=== PATIENT | female | born 1970 | race Caucasian/White ===

== ENCOUNTER 2019-10-11 06:46 | Emergency (ER) | payer SELFPAY ==
--- OUTSIDE RECORDS SUMMARY | 2019-10-11 06:49 | XMS REPORT | Continuity of Care Document ---
:1970 Author Organization [facility] t Address [address] [place] [address] Care Team Providers Name Role Phone Sakina Chin DO Attending Clinician Problems This patient has no known problems. Allergies, Adverse Reactions, Alerts This patient has no known allergies or adverse reactions. Medications This patient has no known medications. Procedures This patient has no known procedures. Encounters Start End Encounter Admission Attending Care Care Encounter Source Date/Time Date/Time Type Type Clinicians Facility Department ID 2019-09-24 2019-09-24 Emergency KP Chin [id number] 14:59:01 18:53:00 Lynn Salmon [id number] [place] [id number] [place] [id number] [id number] Results This patient has no known results.
--- OUTSIDE RECORDS SUMMARY | 2019-10-11 06:49 | XMS REPORT | Summary of Care ---
:1970 Author Organization [facility] Address [address] [place] [id number] Care Team Providers Name Role Phone Pcp, Does Not Have A Primary Care Provider Reason for Visit Reason Comments Neck Pain Auth/Cert Status Reason Specialty Diagnoses / Referred By Referred To Procedures Contact Contact Emergency Medicine [facility] Em ergency Dept [address] [place] [address] Fax: Encounter Details Date Type Department Care Team Description 09/24/2019 Emergency [facility]-Emergency Lynn Black, [facility] DO (Primary Dx) [id number] [place] [address] [phone] Allergies No Known Allergiesdocumented as of this encounter (statuses as of 09/24/2019) Medications Medication Sig Dispensed Refills Start Date End Date Status benzonatate (TESSALON Take 1 capsule by 20 capsule 0 6 Active PERLES) 100 mg mouth 3 (three) capsule times daily. albuterol (PROVENTIL) Inhale 3 mL every 1 Box 0 08/22/2015 Active 2.5 mg /3 mL (0.083 4 (four) hours as %) nebulizer solution needed for Wheezing or Shortness of Breath. ibuprofen (MOTRIN) Take 1 tablet by 30 tablet 0 08/22/2015 Active 600 mg tablet mouth every 6 (six) hours as needed for Pain (scale 4-6). diazePAM (VALIUM) 5 Take 1 tablet by 9 tablet 0 09/24/2019 Active mg tabletIndications: mouth 3 (three) Neck stiffness times daily as needed for Muscle Spasms. documented as of this encounter (statuses as of 09/24/2019) Active Problems No known active problemsdocumented as of this encounter (statuses as of 09/24/2019) Social History Tobacco Use Types Packs/Day Years Used Date Never Assessed Sex Assigned at Date Recorded Not on file Job Start Date Occupation Industry Not on file Not on file Not on file Travel History Travel Start Travel End No recent travel history available. COVID-19 Exposure Response Date Recorded In the last month, have you been in contact with No / Unsure 09/24/2019 2:25 PM CDT someone who was confirmed or suspected to have Coronavirus / COVID-19? documented as of this encounter Last Filed Vital Signs Vital Sign Reading Time Taken Comments Blood Pressure 106/79 09/24/2019 5:00 PM CDT Pulse 76 09/24/2019 5:00 PM CDT Temperature 36.7 C (98 F) 09/24/2019 2:56 PM CDT Respiratory Rate 18 09/24/2019 5:00 PM CDT Oxygen Saturation 99% 09/24/2019 5:00 PM CDT Inhaled Oxygen Concentration - - Weight 67.1 kg (148 lb) 09/24/2019 2:56 PM CDT Height 162.6 cm (5' 4") 09/24/2019 2:56 PM CDT Body Mass Index 25.4 09/24/2019 2:56 PM CDT documented in this encounter Discharge Instructions Lynn Estrella, - 09/24/2019DIAGNOSIS 1. Neck stiffness NO LIFE-THREATENING FINDINGS ON TODAY'S EXAM. PROCEDURES IN THE ER TODAY: None MEDICATIONS ADMINISTERED IN THE ER TODAY: Valium Toradol Robaxin YOUR PRESCRIPTIONS AND [id number] MEDICATION RECOMMENDATIONS: Valium by mouth every 8 hours as needed for neck pain/stiffness. Do not drive while taking this medication. You may use over the counter anti-inflammatories such as Advil or Motrin three times a day with foodas needed for pain. You may use warm compresses, icy hot/farheen montes and massage. SPECIAL CARE INSTRUCTIONS: None FOLLOW-UP RECOMMENDATIONS: RECOMMEND FOLLOW-UP WITH A PRIMARY CARE PROVIDER OR SPECIALIST IN 2-5 DAYS, ESPECIALLY IF NO IMPROVEMENT IN SYMPTOMS. TO FOLLOW-UP WITHIN THE [facility], TRY THESE OPTIONS (CLINIC APPOINTMENTS AVAILABLE ON [id number] BASIS): 1. SCHEDULE AN APPOINTMENT ONLINE AT WWW.[facility] 2. OR CALL THE [facility]ESS [facility] AT OR 3. OR CALL YOUR [facility] PHYSICIAN'S OFFICE DIRECTLY IF YOU ARE ALREADY AN ESTABLISHED [facility] PATIENT. OR, YOU MAY FOLLOW-UP WITH A PROVIDER OF YOUR CHOICE, SUCH : 1. A PHYSICIAN OF YOUR CHOICE 2. [facility], . LOCATIONS IN [facility] 3. [facility], [address] [place], [place]; [phone] RETURN TO ER FOR WORSENING OF SYMPTOMS. AttachmentsThe following attachments cannot be sent through Care Everywhere. Torticollis (Wry Neck) (Burmese)documented in this encounter Plan of Treatment Health Maintenance Due Date Last Done Comments DTaP,Tdap,and Td Vaccines (1 - 1979 Tdap) Depression Screening 1980 PAP SMEAR 1989 Breast Cancer Screening 2008 (MAMMOGRAM) COLONOSCOPY 2018 Zoster Recombinant Vaccine 2018 (SHINGRIX) (1 of 2) INFLUENZA VACCINE (Season Ended) 2019 PNEUMOCOCCAL 0-64 YEARS COMBINED Aged Out No longer eligible based on SERIES patient's age to complete this topic documented as of this encounter Results Not on filedocumented in this encounter Visit Diagnoses Diagnosis Neck stiffness - Primary Torticollis, unspecified documented in this encounter Administered Medications Medication Order MAR Action Action Date Dose Rate Site methocarbamol (ROBAXIN) tablet Given 09/24/2019 5:25 PM CDT 500 mg 500 mg 500 mg, Oral, QID, First dose on 09/24/19 at 2000, Until Discontinued, Routine Medication Order MAR Action Action Date Dose Rate Site diazePAM (VALIUM) injection 5 mg Given 09/24/2019 3:25 PM CDT 5 mg 5 mg, Slow IV Push, ONCE, 1 dose, 09/24/19 at 1615, STAT ketorolac (TORADOL) injection 30 mg Given 09/24/2019 3:23 PM CDT 30 mg 30 mg, Slow IV Push, ONCE, 1 dose, 09/24/19 at 1515, JEF, lance crewmember/mlrs sergeant approving Restricted medication: LYNN BLACK documented in this encounter
[2019-10-11] MEDS ORDERED: LIDOCAINE VISCOUS 2% SOLN 15 ML UDC ONE (07:29)
--- NOTE | 2019-10-11 07:43 | EDPHYS ---
Physician Documentation [facility] Name: Gabrielle Gallegos Age: 49 yrs Sex: Female : 1970 Arrival Date: 10/11/2019 Time: 07:08 Bed 7 Private MD: ED Physician Humberto Escobar HPI: 10/10 07:08 This 49 yrs old Female presents to ER via Unassigned with complaints of ps1 Foreign Body In Ear. 07:36 Onset was this morning. States that an insect flew into her ear. Attempted to remove ps1 with Qtip prior to arrival. No hearing loss. Can feel it fluttering. No pain but irritation with movement. . Historical: - Allergies: 07:29 No Known Allergies; iw - Home Meds: :29 None [Active]; iw - PMHx: :29 None; iw - PSHx: 07:29 None; iw - Social history:: Smoking status: . ROS: 07:36 Constitutional: Negative for fever, chills, and weight loss, Respiratory: Negative for ps1 shortness of breath, cough, wheezing, and pleuritic chest pain, Neuro: Negative for headache, numbess. 07:36 ENT: Positive for foreign body sensation, Negative for hearing loss. Exam: 07:36 Constitutional: This is a well developed, well nourished patient who is awake, alert, ps1 and in no acute distress. Head/Face: Normocephalic, atraumatic. 07:36 ENT: External ear(s): are unremarkable, Ear canal(s): foreign body, an insect, in the right external ear canal. 07:36 Chest/axilla: Inspection: normal. 07:36 Cardiovascular: Rate: normal. 07:36 Respiratory: the patient does not display signs of respiratory distress, Respirations: normal. Vital Signs: 07:28 Weight 68.04 kg; Height 5 ft. 4 in. (162.56 cm); iw 07:28 Body Mass Index 25.75 (68.04 kg, 162.56 cm) iw Procedures: 07:39 Foreign Body Removal: an insect, from the right ear canal, by lidocaine lavage, normal ps1 saline irrigation, The patient tolerated the removal well. MDM: 07:39 Counseling: I had a detailed discussion with the patient and/or guardian regarding: the ps1 historical points, exam findings, and any diagnostic results supporting the discharge/admit diagnosis, to return to the emergency department if symptoms worsen or persist or if there are any questions or concerns that arise at home. ED course: 49 y/o F with fuentes/white moth in ear. Removed with lidocaine lavage and NS irrigation. Spontaneously displaced with irrigation. No alligator forceps used. Hearing intact no residual insect parts remain. Return precautions given if symptoms worsen as documented in the discharge instructions. . 07:42 Patient medically screened. ps1 07:43 Data reviewed: vital signs, nurses notes, and as a result, I will discharge patient. ps1 Administered Medications: No medications were administered Disposition: 10/11/19 07:42 Discharged to Home. Impression: Foreign body in right ear canal. - Condition is Stable. - Discharge Instructions: Ear Foreign Body, [id number]. - Medication Reconciliation Form, Thank You Letter, Antibiotic Education, Prescription Opioid Use form. - Follow up: Private Physician; When: As needed. Follow up: Emergency Department; When: As needed; Reason: Fever > 102 F, Worsening of condition, hearing loss, pain. . - Problem is new. - Symptoms are resolved. Signatures: Raegan Chin RN RN Maia Carpio RN RN hb Humberto Escobar MD MD ps1 Corrections: (The following items were deleted from the chart) 07:52 07:42 10/11/2019 07:42 Discharged to Home. Impression: Foreign body in right ear canal. hb Condition is Stable. Forms are Medication Reconciliation Form, Thank You Letter, Antibiotic Education, Prescription Opioid Use. Follow up: Private Physician; When: As needed. Follow up: Emergency Department; When: As needed; Reason: Fever > 102 F, Worsening of condition, hearing loss, pain. . Problem is new. Symptoms are resolved. ps1
--- NOTE | 2019-10-11 07:43 | ER ---
Nurse's Notes [facility] Name: Gabrielle Gallegos Age: 49 yrs Sex: Female : 1970 Arrival Date: 10/11/2019 Time: 07:08 Bed 7 Private MD: Diagnosis: Foreign body in right ear canal Presentation: 10/10 07:28 Chief complaint: Patient states: bug flew in right ear. Coronavirus screen: Proceed iw with normal triage. Patient denies a cough. Patient denies shortness of breath or difficulty breathing. Patient denies measured and/or subjective temperature greater than 100.4F prior to today's visit. Patient denies travel on a cruise ship or to a country the [facility] currently lists as an affected area. Patient denies contact with known and/or suspected case of COVID-19. Ebola Screen: Patient negative for fever greater than or equal to 101.5 degrees Fahrenheit, and additional compatible Ebola Virus Disease symptoms Patient denies exposure to infectious person. Patient denies travel to an Ebola-affected area in the 21 days before illness onset. No symptoms or risks identified at this time. Initial Sepsis Screen: Does the patient meet any 2 criteria? No. Patient's initial sepsis screen is negative. Does the patient have a suspected source of infection? No. Patient's initial sepsis screen is negative. Risk Assessment: Do you want to hurt yourself or someone else? Patient reports no desire to harm self or others. Onset of symptoms was October 11, 2019. 07:28 Method Of Arrival: Ambulatory iw 07:28 Acuity: JESSICA 4 iw Historical: - Allergies: 07:29 No Known Allergies; iw - Home Meds: 07:29 None [Active]; iw - PMHx: 07:29 None; iw - PSHx: 07:29 None; iw - Social history:: Smoking status: . Screenin:40 Abuse screen: Denies threats or abuse. Denies injuries from another. Nutritional hb screening: No deficits noted. Tuberculosis screening: No symptoms or risk factors identified. Fall Risk None identified. Assessment: 07:35 General: Appears in no apparent distress. Behavior is calm, cooperative. Pain: Denies hb pain. Neuro: Level of Consciousness is awake, alert, obeys commands, Oriented to person, place, time, situation. Cardiovascular: Patient's skin is warm and dry. Respiratory: Respiratory effort is even, unlabored, Respiratory pattern is regular, symmetrical. GI: No signs and/or symptoms were reported involving the gastrointestinal system. : No signs and/or symptoms were reported regarding the genitourinary system. EENT: Reports foreign body in right ear. Derm: Skin is pink, warm \T\ dry. Musculoskeletal: No signs and/or symptoms reported regarding the musculoskeletal system. Vital Signs: 07:28 Weight 68.04 kg; Height 5 ft. 4 in. (162.56 cm); iw 07:28 Body Mass Index 25.75 (68.04 kg, 162.56 cm) iw ED Course: 07:08 Patient arrived in ED. ag5 07:08 Humberto Escobar MD is Attending Physician. ps1 07:29 Triage completed. iw 07:29 Arm band placed on. iw 07:40 Patient has correct armband on for positive identification. hb 07:50 Maia Carpio RN is Primary Nurse. hb 07:51 No provider procedures requiring assistance completed. Patient did not have IV access hb during this emergency room visit. Administered Medications: No medications were administered Outcome: 07:42 Discharge ordered by . ps1 07:51 Discharged to home ambulatory. hb 07:51 Condition: stable 07:51 Discharge instructions given to patient, Instructed on discharge instructions, follow up and referral plans. medication usage, Demonstrated understanding of instructions, follow-up care, medications. 07:52 Patient left the ED. hb Signatures: Raegan Chin RN RN Maia Carpio RN RN Humberto Escobar MD MD ps1 Porsha Brown ag5
== END 2019-10-11 07:52 | disposition home or self-care (01) ==
LOC: ER 06:46
PROC: 09C3XZZ Extirpation of Matter from Right External Auditory Canal, External Approach (ICD-10-PCS; principal; 2019-10-11)
DX: T16.1XXA Foreign body in right ear, initial encounter (principal)
CPT/HCPCS: 99281